=== PATIENT | male | born 1955 | race Caucasian/White ===

== ENCOUNTER 2019-12-21 10:23 | Emergency (ER) | payer OTHER ==
[~2019-12-21] VITALS: Ht 162.6 cm; Wt 99.8 kg
[2019-12-21] MEDS ORDERED: NEURONTIN 300M300 M2 PO (10:46)
[2019-12-21] MEDS ORDERED: KEPPRA 500 MG500 MG PO (10:47)
[2019-12-21] MEDS ORDERED: OMEPRAZOLE40 MG PO (10:47)
[2019-12-21] MEDS ORDERED: PRINIVIL10 MG PO (10:48)
[2019-12-21] MEDS ORDERED: LEVO-T50 MCG PO (10:48)
[2019-12-21] MEDS ORDERED: IBUPROFEN 800800 M1 PO (10:48)
[2019-12-21] MEDS ORDERED: ASA81BEC PO (10:49)
[2019-12-21] MEDS ORDERED: SIMVASTATIN80 MG PO (10:49)
[2019-12-21] MEDS ORDERED: MECLIZINE HCL25 M1 PO (10:49)
[2019-12-21] MEDS ORDERED: INTERMEZZO3.5 MG PO (10:50)
[2019-12-21 12:06] LABS: ABSOLUTE BASOPHILS 0.1 thou/uL (0.0-0.2); ABSOLUTE EOSINOPHILS 0.1 thou/uL (0.0-0.7); ABSOLUTE LYMPHOCYTES 1.6 thou/uL (0.8-5.3); ABSOLUTE MONOCYTES 0.4 thou/uL (0.0-1.2); BASOPHILS 0.8 %; EOSINOPHILS 0.9 %; HEMATOCRIT 44.3 % (42.0-52.0); MCH 30.1 pg (26.0-34.0); MCHC 33.8 g/dL (28.0-37.0); MCV 89.1 fL (80.0-100.0); MONOCYTES 7.3 %; MPV 8.2 fl. (7.2-11.1); NUCLEATED RBCS 0 /100WBC; PLATELET COUNT* 235 thou/uL (150-400); RBC 4.98 mil/uL (4.50-6.00); RDW-CV 13.3 % (10.5-14.5); WBC 6.2 thou/uL (4.0-11.0)
[2019-12-21 12:13] LABS: CALCIUM 8.4 mg/dL (8.5-10.1); CREATININE 1.1 mg/dL (0.6-1.3); POTASSIUM 4.2 mmol/L (3.5-5.1)
[2019-12-21 12:26] LABS: ALBUMIN 3.5 g/dL (3.4-5.0); TOTAL BILIRUBIN 0.4 mg/dL (<0.1-1.0); TOTAL PROTEIN 6.4 g/dL (6.4-8.2)
[2019-12-21] MEDS ORDERED: PERCOCET 5-3251 EACH PO (13:06)
[2019-12-21] MEDS ORDERED: FLEXERIL PO (13:06)
[2019-12-21 13:27] VITALS: BP 146/80
== END 2019-12-21 13:28 | disposition home or self-care (01) ==
LOC: M.ERS 10:23
PROVIDERS: Family Medicine
DX: M54.32 Sciatica, left side (principal); I10 Essential (primary) hypertension; I25.10 Atherosclerotic heart disease of native coronary artery without angina pectoris; Z88.5 Allergy status to narcotic agent